=== PATIENT | male | born 1990 | race Asian ===

== ENCOUNTER 2021-09-02 15:50 | Emergency (ER) | payer OTHER, SELFPAY ==
[2021-09-02 15:57] VITALS: BP 119/76; PULSE 128; RESP 17; TEMP 37.9; O2SAT 100; BMI 27.4
[2021-09-02 16:04] VITALS: TEMP 38.3
[2021-09-02] MEDS: IBUPROFEN 400 MG TABLET 800 MG PO (16:04)
[2021-09-02 16:18] LABS: COVID19 -Nasal RAPID POSITIVE (Negative)
== END 2021-09-02 19:19 | disposition left against medical advice (07) ==
PROVIDERS: Emergency Medicine; Emergency Provider Emergency Medicine; PCP Internal Medicine
DX: U07.1 COVID-19 (principal)
CPT/HCPCS: 87635; 99283; C9803

== ENCOUNTER → 2023-01-16 16:49 | Outpatient (CLI) | payer OTHER, SELFPAY ==
--- NOTE | 2023-01-16 16:55 | DI.RAD.S_ITS ---
PROCEDURE: XR CHEST 1V INDICATIONS: Positive IGRA TECHNIQUE: One view of the chest was acquired. COMPARISON: None. FINDINGS: Surgical changes and devices: None. Lungs and pleura: Lungs are clear. No pleural effusions or pneumothorax. Mediastinum: Mediastinal contours appear normal. Heart size is normal. Bones and chest wall: No suspicious bony lesions. Overlying soft tissues appear unremarkable. IMPRESSION: No active pulmonary tuberculosis identified radiographically. Dictated by: Ismael Willis RRA Interpreted: Vincenzo Hawkins MD on 01/16/2023 at 20:40 Transcribed by: [email or web address] on 01/17/2023 at 8:57 Approved by: Vincenzo Hawkins M.D. on 01/18/2023 at 6:48
== END ==
PROVIDERS: PCP Internal Medicine; Referring Provider Family Medicine; Visit Provider Family Medicine
DX: R76.12 Nonspecific reaction to cell mediated immunity measurement of gamma interferon antigen response without active tuberculosis (principal)
CPT/HCPCS: 71045